=== PATIENT | female | born 1985 | race Caucasian/White ===

== ENCOUNTER 2017-07-31 10:21 | Emergency (ER) | payer OTHER ==
[~2017-07-31] VITALS: Ht 160 cm; Wt 54.7 kg
[~2017-07-31 10:21] MED LIST: BIRTH CONTROL; CIPRO500 MG PO; MACRODANTIN100 MG PO; MOTRIN600 MG PO; ORTHO TRI-CY1 TABLE1 PO
[2017-07-31 10:54] LABS: APPEARANCE CLEAR ((CLEAR)); BILIRUBIN NEGATIVE; BLOOD NEGATIVE; COLOR YELLOW ((YELLOW)); GLUCOSE (STRIP) NEGATIVE; KETONES NEGATIVE; LEUKOCYTES NEGATIVE; NITRITE NEGATIVE; PROTEIN (STRIP) NEGATIVE; UROBILINOGEN 0.2 MG/DL (0.2-1.0)
[2017-07-31] MEDS ORDERED: PYRIDIUM200 MG PO (12:55)
[2017-07-31] MEDS ORDERED: MIRALAX119 GM PO (12:55)
[2017-07-31 13:05] VITALS: BP 128/93
== END 2017-07-31 13:06 | disposition home or self-care (01) ==
LOC: EME 10:21
DX: R30.0 Dysuria (principal); Z87.440 Personal history of urinary (tract) infections; F17.200 Nicotine dependence, unspecified, uncomplicated; Z88.0 Allergy status to penicillin
CPT/HCPCS: 81003; 81025; 87086; 99281; 99282